=== PATIENT | male | born 1930 | race Caucasian/White ===

== ENCOUNTER 2017-09-05 18:20 | Inpatient (IN) | payer OTHER ==
[~2017-09-05] VITALS: Ht 170.2 cm; Wt 54.1 kg
--- NOTE | ~2017-09-05 | EKG ---
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
[2017-09-05 18:21] VITALS: BP 180/81
[2017-09-05 19:15] LABS: HEMATOCRIT 33.8 % (42.0-52.0); HEMOGLOBIN 11.6 gm/dL (14.0-18.0); MCH 31.7 pg (26.0-34.0); MCHC 34.3 g/dL (28.0-37.0); MCV 92.2 fL (80.0-100.0); PLATELET COUNT 248 thou/uL (150-400); RBC 3.66 mil/uL (4.50-6.00); RDW 13.9 % (10.5-14.5); WBC 5.2 thou/uL (4.0-11.0)
[2017-09-05 19:23] LABS: CALCIUM 8.9 mg/dL (8.5-10.1); CREATININE 1.1 mg/dL (0.7-1.3); POTASSIUM 4.2 mmol/L (3.5-5.1)
[2017-09-05 19:44] VITALS: BP 152/68
[2017-09-05 20:00] LABS: ABSOLUTE NEUTROPHILS 2.9 thou/uL (1.4-8.2); ANISOCYTOSIS 1+; ATYPICAL LYMPHS 2 %; POIKILOCYTOSIS SLIGHT
[2017-09-05 20:05] VITALS: BP 152/68
[2017-09-05 20:07] LABS: ALBUMIN 3.7 g/dL (3.4-5.0); DIRECT BILIRUBIN 0.1 mg/dL (<0.1-0.3); TOTAL BILIRUBIN 0.4 mg/dL (<0.1-1.0); TOTAL PROTEIN 6.5 g/dL (6.4-8.2)
[2017-09-05 20:30] VITALS: BP 148/81
[2017-09-05 23:20] LABS: URINE BILIRUBIN NEGATIVE (Negative); URINE BLOOD NEGATIVE (Negative); URINE CLARITY CLEAR; URINE COLOR YELLOW; URINE GLUCOSE-RANDOM* NEGATIVE (Negative); URINE KETONES TRACE (Negative); URINE LEUKOCYTES NEGATIVE (Negative); URINE NITRITE NEGATIVE (Negative); URINE PROTEIN (DIPSTICK) NEGATIVE (Negative); URINE SPECIFIC GRAVITY 1.015 (1.005-1.035); URINE UROBILINOGEN 0.2 E.U./dl (0.2-1.0)
[2017-09-06 04:17] VITALS: BP 156/84
[2017-09-06 06:21] LABS: HEMATOCRIT 33.8 % (42.0-52.0); HEMOGLOBIN 11.6 gm/dL (14.0-18.0); MCH 31.4 pg (26.0-34.0); MCHC 34.2 g/dL (28.0-37.0); MCV 91.6 fL (80.0-100.0); RBC 3.69 mil/uL (4.50-6.00); WBC 5.3 thou/uL (4.0-11.0)
[2017-09-06 06:38] LABS: CALCIUM 8.8 mg/dL (8.5-10.1); CREATININE 1.1 mg/dL (0.7-1.3); POTASSIUM 4.5 mmol/L (3.5-5.1)
[2017-09-06 07:24] VITALS: BP 139/67
[2017-09-06 11:57] VITALS: BP 118/66
[2017-09-06 19:44] VITALS: BP 138/70
[2017-09-07 04:30] VITALS: BP 144/73
[2017-09-07 08:06] VITALS: BP 125/59
[2017-09-07 12:00] VITALS: BP 110/47
[2017-09-07 15:28] VITALS: BP 151/78
[2017-09-07 19:06] VITALS: BP 144/64
[2017-09-08 07:49] VITALS: BP 142/70
[2017-09-08 11:32] VITALS: BP 110/57
[2017-09-08] MEDS ORDERED: DIVALPROEX SOD125 MG PO (12:23)
[2017-09-08 13:51] VITALS: BP 110/57
[2017-09-08 15:23] VITALS: BP 110/57
[2017-09-08 15:40] VITALS: BP 110/57
[2017-09-13] MEDS ORDERED: DEPAKOTE 250MG250 M1 (09:47)
== END 2017-09-08 15:49 | disposition home health service (06) | DRG 71 ==
LOC: ER 18:20 → 3W 19:29 → EROBS 19:29 → 3W 20:10
PROVIDERS: Emergency Medicine; Nurse Practitioner Family
DX: G93.40 Encephalopathy, unspecified (principal); E46 Unspecified protein-calorie malnutrition; F03.91 Unspecified dementia, unspecified severity, with behavioral disturbance; Z68.1 Body mass index [BMI] 19.9 or less, adult; R62.7 Adult failure to thrive; B02.9 Zoster without complications; R09.81 Nasal congestion; Z60.2 Problems related to living alone; J30.9 Allergic rhinitis, unspecified; Z87.891 Personal history of nicotine dependence; Z79.899 Other long term (current) drug therapy
CPT/HCPCS: 10080

== ENCOUNTER → 2017-09-13 | Outpatient (CLI) | payer OTHER, MEDICARE ==
[~2017-09-13] VITALS: Ht 172.7 cm; Wt 55.2 kg
[~2017-09-13] MED LIST: DEPAKOTE 250MG250 M1; DIVALPROEX SOD125 MG PO
[2017-09-13 09:48] VITALS: BP 138/65
[2017-09-13 10:51] LABS: HEMATOCRIT 33.8 % (42.0-52.0); HEMOGLOBIN 11.6 gm/dL (14.0-18.0); MCH 31.5 pg (26.0-34.0); MCHC 34.2 g/dL (28.0-37.0); PLATELET COUNT 235 thou/uL (150-400); RBC 3.67 mil/uL (4.50-6.00); RDW 14.1 % (10.5-14.5); WBC 8.3 thou/uL (4.0-11.0)
[2017-09-13 11:11] LABS: ALBUMIN 3.4 g/dL (3.4-5.0); CALCIUM 8.7 mg/dL (8.5-10.1); CREATININE 1.2 mg/dL (0.7-1.3); MAGNESIUM 1.9 mg/dL (1.8-2.4); POTASSIUM 4.7 mmol/L (3.5-5.1); TOTAL BILIRUBIN 0.4 mg/dL (<0.1-1.0); TOTAL PROTEIN 6.9 g/dL (6.4-8.2)
[2017-09-13 11:40] LABS: ABSOLUTE NEUTROPHILS 5.7 thou/uL (1.4-8.2); PLATELET ESTIMATE NORMAL
== END ==
LOC: SEN 07:50
PROVIDERS: Nurse Practitioner Family
DX: Z09 Encounter for follow-up examination after completed treatment for conditions other than malignant neoplasm (principal); F03.90 Unspecified dementia, unspecified severity, without behavioral disturbance, psychotic disturbance, mood disturbance, and anxiety; H61.23 Impacted cerumen, bilateral; L98.9 Disorder of the skin and subcutaneous tissue, unspecified; B35.1 Tinea unguium

== ENCOUNTER 2017-09-22 14:21 | Emergency (ER) | payer OTHER, MEDICARE ==
[~2017-09-22] VITALS: Ht 170.2 cm; Wt 54.4 kg
[2017-09-22] MEDS ORDERED: PROTONIX40 M1 PO (15:52)
== END 2017-09-22 16:29 | disposition home or self-care (01) ==
LOC: ER 14:21
DX: R05 Cough (principal); F03.90 Unspecified dementia, unspecified severity, without behavioral disturbance, psychotic disturbance, mood disturbance, and anxiety; Z87.891 Personal history of nicotine dependence

== ENCOUNTER → 2017-09-29 | Outpatient (CLI) | payer OTHER, MEDICARE ==
[~2017-09-29] MED LIST changes: +PROTONIX40 M1 PO
== END ==
LOC: RAD 11:00 → SPEECH 11:00 → RAD 17:24
DX: R13.12 Dysphagia, oropharyngeal phase (principal)

== ENCOUNTER → 2017-10-20 | Outpatient (CLI) | payer OTHER, MEDICARE | LOC: RAD 07:44 | DX: K44.9 Diaphragmatic hernia without obstruction or gangrene (principal); R13.10 Dysphagia, unspecified ==

== ENCOUNTER 2018-08-02 17:11 | Inpatient (IN) | payer OTHER, MEDICARE ==
[~2018-08-02] VITALS: Ht 170.2 cm; Wt 58.2 kg
[~2018-08-02 17:11] MED LIST changes: +ATIVAN0.5 MG PO; +CLARITIN10 MG PO; +DEPAKOTE ER500 MG PO; +FINASTERIDE5 MG PO; +FLOMAX0.4 MG PO; +MIRALAX17 GM PO; +SEROQUEL 25 MG25 M1 PO; +TRAZODONE HCL50 MG PO
[2018-08-02 17:12] VITALS: BP 153/63
[2018-08-02 22:25] VITALS: BP 108/72
[2018-08-02 22:47] LABS: HEMATOCRIT 34.8 % (42.0-52.0); HEMOGLOBIN 11.5 gm/dL (14.0-18.0); MCH 32.3 pg (26.0-34.0); MCHC 33.1 g/dL (28.0-37.0); MCV 97.5 fL (80.0-100.0); RBC 3.57 mil/uL (4.50-6.00); WBC 5.4 thou/uL (4.0-11.0)
[2018-08-02 22:48] LABS: URINE BILIRUBIN NEGATIVE (Negative); URINE BLOOD NEGATIVE (Negative); URINE CLARITY CLEAR; URINE COLOR YELLOW; URINE GLUCOSE-RANDOM* NEGATIVE (Negative); URINE KETONES 1+ (Negative); URINE LEUKOCYTES-REFLEX NEGATIVE (Negative); URINE NITRITE-REFLEX NEGATIVE (Negative); URINE PROTEIN (DIPSTICK) NEGATIVE (Negative); URINE UROBILINOGEN 0.2 E.U./dl (0.2-1.0)
[2018-08-02 22:56] LABS: CALCIUM 8.3 mg/dL (8.5-10.1); CREATININE 0.9 mg/dL (0.7-1.3); POTASSIUM 4.2 mmol/L (3.5-5.1)
[2018-08-03] MEDS ORDERED: APAP650 PO (00:23)
[2018-08-03] MEDS ORDERED: AZELASTINE137 MCG/0. NASAL (00:24)
[2018-08-03] MEDS ORDERED: DEPAKOTE500 MG PO (00:25)
[2018-08-03] MEDS ORDERED: EXELON1 EAC2 TRANSDERM (00:26)
[2018-08-03] MEDS ORDERED: IRON325 PO (00:27)
[2018-08-03] MEDS ORDERED: UNICOMPLEX M TA1 TA1 PO (00:28)
[2018-08-03] MEDS ORDERED: PROVERA2.5 MG PO (00:29)
[2018-08-03] MEDS ORDERED: RISPERDAL0.5 MG PO (00:29)
--- NOTE | 2018-08-03 03:25 | NUR ---
ADMITTED FROM ER UNDER 'S CARE. AXOX2, OCCASIONAL CONFUSION WITH HX DEMENTIA. RECENT FALL. RFA SKIN TEAR. PICTURE TAKEN AND INITIAL TX GIVEN. C/O R HIP PAIN. DOES NOT REQUIRE PAIN MED WEHN LAYING FLAT. SON, DPOA AT BEDSIDE. NO S/S ACUTE DISTRESS NOTED OR REPORTED AT THIS TIME. WILL CONT TO MONITOR FOR ANY CHANGES IN CONDITION.
[2018-08-03 04:14] VITALS: BP 142/65
[2018-08-03 07:15] VITALS: BP 137/62
--- NOTE | 2018-08-03 10:07 | NUR ---
WOUND CONSULT: PT. WAS SEEN TODAY BY WOUND CARE FOR EVAUATION OF SKIN TEAR TO RIGHT FOREARM. PT. SUFFERED A FALL AT THE HALFWAY PRIOR TO ADMIT. DURING THIS FALL HE OBTAINED A SKIN TEAR TO HIS RIGHT FOREARM. EDGES WERE ABLE TO BE RE-APPROXIMATED. THERE ARE NO SIGNS OF INFECTION NOTED AT THIS TIME OR ACTIVE BLEEDING FROM THIS SITE. SKIN TEAR WAS CLEANED AND SEALED WITH MARATHON. PT. TOLERATED WELL. RECOMMENDATIONS: NO FURTHER DRESSINGS ARE REQUIRED, LEAVE SITE OPEN TO AIR AND MONITOR FOR SIGNS AND SYMPTOMS OF INFECTION. WOUND CARE WILL BE SIGNING OFF. PLEASE RE-CONSULT IF NEEDED. PT. AND STAFF NURSE WERE INSTRUCTED ON PLAN OF CARE.
--- NOTE | 2018-08-03 12:11 | NUR ---
DISCHARGE PLANNING. 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 PLAN IS FOR PATIENT TO RETURN TO [facility]. CLINICAL INFORMATION FAXED TO [facility] [employer], VERIFIED RECEIVED. FOLLOWING TO ASSIST WITH DISCHARGE NEEDS.
--- NOTE | 2018-08-03 14:12 | NUR ---
PT ADMITTED RELATED TO S/P FALL; INABILITY TO AMBULATE; R HIP SOFT TISSUE CONTUSION. CM REVIEWED CHART AND SPOKE WITH CARE TEAM. CM MET WITH PT AT BEDSIDE THIS DAY. PT IS ALERT TO SELF. PT INDICATED HE HAD BEEN LIVING AT [facility] AND THAT CM COULD SPEAK TO HIS SON/SPOA MARÍA. 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 HE INDICATED THAT THERAPY WORKED WITH HIM WITH A FWW AT TIME BUT THAT HE HADN'T USED ONE REGULARLY. HE INDICATED THAT PT IS WAITING LIST TO ADMIT TO [facility] BUT THAT HE ANTICPATES PT RETRUNING TO [place] OR [place] ONCE MEDICALLY STABLE. CM TO FOLLOW INDICATED WITH DC PLANNING.
[2018-08-03 14:43] VITALS: BP 128/61
--- NOTE | 2018-08-03 16:26 | NUR ---
QUIET UNEVENTFUL DAY. RIGHT HIP TENDERNESS NOTED. NEEDS ASSIST X 1 TO SIT ON SIDE OF BED AND TRANSFER TO CHAIR. ALERT TO SELF, PLACE, SITUATION. FORGETFUL. EATING APPROXIMATELY 1/2 OF MEALS. ABLE TO FEED SELF. FALL PRECAUTIONS IN PLACE. BED ACROSS FROM NURSES STATION. MONITORING CLOSELY.
[2018-08-03 19:40] VITALS: BP 96/44
[2018-08-04 03:00] VITALS: BP 127/54
--- NOTE | 2018-08-04 05:36 | NUR ---
ASSUMED CARE OF PT AT 1900. A&Ox3, FORGETFUL BUT ANSWERED QUESTIONS APPROPRIATELY. VS HAVE BEEN STABLE OVER NOC. SORENESS NOTED IN R HIP W/ MOVEMENT BUT WAS ABLE TO TOLERATE WITHOUT PAIN MEDS. ABLE TO SLEEP OVER NOC. NO ACUTE DISTRESS. PROGRESSING WELL TOWARDS POC GOALS.
[2018-08-04 08:30] VITALS: BP 118/56
[2018-08-04 14:10] VITALS: BP 116/63
--- NOTE | 2018-08-04 14:32 | NUR ---
SHOULD PT BEMEDICALLY STABLE TO DISCHARGE BACK TO [facility] OVER THE WEEKEND CALL LIAISON ALEN AT TO ARRANGE TRANSPORT. FAX ORDERS TO . CALL FOR REPORT. NOTIFY PT'S SON. CHART COPY WILL NEED TO BE MADE. CM TO FOLLOW INDICATED WITH DC PLANNING.
[2018-08-04 20:00] VITALS: BP 115/57
--- NOTE | 2018-08-04 20:03 | NUR ---
Assumed pt care this am, pt has been stable through out the shift. Was able to work with pt and ot, complained of pain once, medication given. No acure distress was noted. Will monitor pain and activity levels. Pt prefers his shake vs his meals, nutritions and hydrations promoted. MAYUR cuenca
[2018-08-05 03:40] VITALS: BP 126/56
[2018-08-05 05:18] LABS: HEMATOCRIT 36.3 % (42.0-52.0); HEMOGLOBIN 12.1 gm/dL (14.0-18.0); MCHC 33.5 g/dL (28.0-37.0); MCV 95.7 fL (80.0-100.0); RBC 3.79 mil/uL (4.50-6.00); WBC 5.7 thou/uL (4.0-11.0)
[2018-08-05 05:37] LABS: CALCIUM 8.6 mg/dL (8.5-10.1); CREATININE 0.9 mg/dL (0.7-1.3); POTASSIUM 4.4 mmol/L (3.5-5.1)
--- NOTE | 2018-08-05 05:57 | NUR ---
Pt. rested quietly at intervals during the night when checked on during frequent rounds. He has been incontinent of urine and nasir care given. He offers no c/o pain. Bed alarm is on.
[2018-08-05 07:20] VITALS: BP 114/46
[2018-08-05 15:28] VITALS: BP 98/48
[2018-08-05 19:58] VITALS: BP 108/49
--- NOTE | 2018-08-05 20:56 | NUR ---
Pt was able to transfer from bed to to commode and stay on the chair for halkf of the day. Still incontinent of bladder and bowel, but able to call out and inform the nurse after the fact. No acute distress was noted. nutrition and hydration promoted. POC followed no issues or cencerns verbalized.
--- NOTE | 2018-08-06 03:15 | NUR ---
Pt. rested quietly at intervals during the night when checked on during frequent rounds. He offers no c/o pain. Bed alarm is on.
[2018-08-06 06:00] VITALS: BP 125/57
[2018-08-06 07:41] VITALS: BP 123/53
[2018-08-06 15:34] VITALS: BP 111/54
--- NOTE | 2018-08-06 16:25 | NUR ---
Received awake on bed. Vital signs stable. Visited by relatives this morning. Assisted with ADLs, patient's diet modified to mechanically altered ground, takes very long time to chew and swallow hard food. Patient turned from side to side. No complain of pain. Patient encouraged to eat and drink, offered snacks from time to time.
[2018-08-06 20:07] VITALS: BP 111/56
--- NOTE | 2018-08-07 01:50 | NUR ---
ASSUMED CARE AROUND 1900. AXOX2. NO S/S ACUTE DISTRESS NOTED OR REPORTED AT [facility] TIME. WILL CONT TO MONITOR FOR ANY CHANGES IN CONDITION.
[2018-08-07 04:05] VITALS: BP 136/74
[2018-08-07 05:50] LABS: HEMATOCRIT 35.2 % (42.0-52.0); MCH 32.4 pg (26.0-34.0); MCHC 34.2 g/dL (28.0-37.0); MCV 94.7 fL (80.0-100.0); RBC 3.72 mil/uL (4.50-6.00); WBC 5.8 thou/uL (4.0-11.0)
[2018-08-07 06:01] LABS: CALCIUM 8.8 mg/dL (8.5-10.1); POTASSIUM 4.6 mmol/L (3.5-5.1)
[2018-08-07 07:17] VITALS: BP 118/52
--- NOTE | 2018-08-07 13:49 | NUR ---
CARE TEAM INDICATED THAT PT WAS MEDICALLY STABLE TO DISCHARGE THIS DAY. THEY ARE RECOMMENDING POST ACUTE CARE STAY REHAB UPON [place]. CM CALLED AND SPOKE WITH PT'S SON MARÍA AND HE INDICATED THAT PT HAD BEEN ON WHAT THEY CALL THE BEHAVIORAL [facility]ALTH UNIT AT [facility] AND THAT HE WASN'T SURE IF PT WOULD GO BACK THERE TO RECIEVE THERAPY SERVICES IS HE WERE TO RETURN TO [facility]. CM INDICATED THAT CM WOULD SPEAK TO LIAISON AND FIND OUT. SPOKE WITH ALEN AND SHE WAS GOING TO CALL PT'S SON. REFERRAL WAS ALSO SENT TO [facility] PER SON'S REQUEST. CM TO FOLLOW INDICATED WITH DC PLANNING.
--- NOTE | 2018-08-07 15:04 | NUR ---
BOTH [facility] AND [facility] INDICATED THAT THEY ARE ABLE TO ACCEPT PT FOR POST ACUTE REHAB STAY THIS DAY. CM NOTIFIED PT'S SON/DPOA AND HE INDICATED HE WOULD PREFER PT TO GO TO [facility]. CASSIDY CALLED AND NOTIFIED ALEN LIAISON WITH [facility] AND THE FACILITY INDICATED THAT THEY WOULD BE ABLE TO TAKE PT BACK UPON DC BUT THAT THEY WOULDN'T HOLD PT'S BED. SON IS AWARE OF THIS AND IS AGREEABLE. CHART COPY ORDERED. ORDERS TO BE FAXED ONCE COMPLETED. REPORT TO BE CALLED TO . PT'S SON IS TO PROVIDE TRANSPORT VIA PERSONAL VEHICLE AROUND 1600.
[2018-08-07] MEDS ORDERED: LIDOPATCH1 EACH TRANSDERM (15:24)
== END 2018-08-07 18:01 | DRG 605 ==
LOC: ER 17:11 → EROBS 21:49 → 4W 21:49
PROVIDERS: Physician Assistant; ADMIT Hospitalist
DX: S70.01XA Contusion of right hip, initial encounter (principal); F03.91 Unspecified dementia, unspecified severity, with behavioral disturbance; S09.90XA Unspecified injury of head, initial encounter; K21.9 Gastro-esophageal reflux disease without esophagitis; D64.9 Anemia, unspecified; R26.2 Difficulty in walking, not elsewhere classified; W18.30XA Fall on same level, unspecified, initial encounter; Y93.89 Activity, other specified; Y92.89 Other specified places as the place of occurrence of the external cause; Z87.891 Personal history of nicotine dependence; Y99.8 Other external cause status; Z79.899 Other long term (current) drug therapy
CPT/HCPCS: 10040